=== PATIENT | female | born 1990 | race Caucasian/White ===

== ENCOUNTER 2021-03-09 08:35 | Emergency (ER) | payer OTHER, SELFPAY ==
[2021-03-09] VITALS (9 sets, daily range): BP systolic 103–135; BP diastolic 51–93; PULSE 80–121; RESP 16–18; TEMP 36.6; O2SAT 97–100; BMI 30.1
--- NOTE | 2021-03-09 09:12 | ED_ITS ---
HPI - Abdominal Pain General Chief Complaint: Abdominal Pain Stated Complaint: nausea/pain left side/sent by PCP Time Seen by Provider: 03/09/21 08:54 Source: patient Mode of arrival: Ambulatory Limitations: no limitations History of Present Illness HPI narrative: The patient presents with nausea. She developed abdominal pain about 3 weeks ago. She has been evaluated at the [facility] in [place]. Her initial evaluation revealed elevated transaminases. Her ferritin level is elevated. She apparently had repeat labs yesterday. She has nausea. She is not currently vomiting. She has no diarrhea. She has no jaundice. Right upper quadrant pain does not radiate. She has been on a clear liquid diet. She cannot clearly identify fatty food intolerance. Ultrasound showed fatty infiltrate, no obvious gallbladder disease. She is also being treated for Graves disease. She presents now because of the nausea she is experiencing this morning. She has no fever, chills or increasing abdominal discomfort other nausea. She is on control. Her LMP was 8 months ago. She is certain she is not . She has no urinary symptoms. She has no lower abdominal discomfort. Bowel movements have been normal. She has no suggestion of GI bleed. There is no clear family history of gallbladder/liver disease. Related Data Allergies Allergy/AdvReac Type Severity Reaction Status Date / Time No Known Drug Allergies Allergy Verified 03/09/21 08:43 Review of Systems Constitutional Constitutional: Denies body ache(s), Denies chills, Denies fatigue, Denies fever(s) and Denies headache(s) Eyes Eyes: Reports other (No yellowing of the eyes.) ENT Ears, Nose, Mouth, and Throat: Denies vertigo, Denies dizziness, Denies headache(s) and Denies sore throat Cardiovascular Cardiovascular: Denies chest pain, Denies rapid heart rate, Denies pedal edema, Denies edema and Denies dyspnea Respiratory Respiratory: Denies cough and Denies dyspnea Gastrointestinal Gastrointestinal: Reports as per HPI Genitourinary Genitourinary: Reports as per HPI Musculoskeletal Musculoskeletal: Denies back pain Integumentary/Breasts Skin/Breast: Denies jaundice Neurologic Neurologic: Denies vertigo, Denies dizziness and Denies headache(s) Endocrine Endocrine: Denies fatigue, Denies flushing and Denies polyuria Patient History Social History Smoking Status: Never smoker Smoking Status: Never smoker Substance Use Type: former substance user Exam Initial Vital Signs Initial Vital Signs: Vital Signs Pulse Rate 100 H 03/09/21 08:41 Respiratory Rate 18 03/09/21 08:41 Blood Pressure 135/90 03/09/21 08:41 Pulse Oximetry 100 03/09/21 08:41 Const General: cooperative, healthy appearing and comfortable [facility] Head: normal to inspection Face and sinus: normal facial exam Mouth: oral mucosae normal Throat: posterior oropharynx normal Eyes Sclera: sclerae normal Pupils: PERRL EOM: EOM intact bilaterally Neck Neck: normal visual inspection Chest Chest: normal inspection of the chest Resp Effort & Inspection: normal respiratory effort Auscultation: clear to auscultation bilaterally Cardio Rate: regular rate Rhythm: regular rhythm Heart Sounds: S1 normal, S2 normal and no murmurs GI Auscultation: normal bowel sounds Rectal Exam: No mass Other: RUQ tenderness without distention, guarding or rebound. Back/Spine/Pelvis Back: No CVA tenderness Skin General: no rashes or lesions noted and No jaundice Neuro General: patient alert, patient awake, patient oriented x3 and no focal motor deficits Extrem General: normal to inspection and No edema Psych Appearance: grossly normal Course Course Course Narrative: The evaluation is consistent with fatty liver. Her gallbladder appears to be normal. I am suggesting GI consultation and a HIDA scan for ongoing evaluation of the patient. Orders Ordered: ED Orders 03/09/21 09:04 Complete Blood Count AUTO DIFF Stat Comprehensive Metabolic Panel Stat Lipase Stat Partial Thromboplastin Time Stat Prothrombin Time INR Stat 03/09/21 09:08 EKG-12 Lead Stat 03/09/21 09:31 Urine Microscopic Stat 03/09/21 09:33 Test Urine Stat 03/09/21 11:11 US abdomen limited Stat Sodium Chloride (Normal Saline 0.9%) 1,000 mls @ 150 mls/hr IV CONT BHUMIKA Last Admin: 03/09/21 09:33 Dose: 150 mls/hr Documented by: KAUSHIK Discontinued Medications Ondansetron HCl (Ondansetron 4 Mg/2 Ml Inj) 4 mg IV NOW ONE Stop: 03/09/21 09:25 Last Admin: 03/09/21 09:33 Dose: 4 mg Documented by: KAUSHIK Vital Signs Vital signs: Vital Signs - 8 hr 03/09/21 08:41 03/09/21 08:48 03/09/21 09:03 Temperature 97.8 F Pulse Rate 100 H 121 H 100 H Respiratory Rate 18 18 18 Blood Pressure 135/90 135/90 Pulse Oximetry 100 100 97 03/09/21 09:30 03/09/21 10:00 03/09/21 10:30 Temperature Pulse Rate 103 H 93 H 90 Respiratory Rate 18 18 Blood Pressure 113/83 112/64 105/51 L Pulse Oximetry 98 98 98 03/09/21 11:00 03/09/21 11:30 Temperature Pulse Rate 85 86 Respiratory Rate 16 Blood Pressure 103/65 113/76 Pulse Oximetry 98 98 MDM - Abdominal Pain Lab Data Result diagrams: 03/09/21 09:04 03/09/21 09:04 Labs: Lab Results 03/09/21 03/09/21 03/09/21 Range/Units 09:04 09:04 09:04 WBC 6.0 (4.5-11.0) X10^3/uL RBC 4.86 (4.0-5.2) X10^6/uL Hgb 13.5 (12.0-16.0) g/dL Hct 40.7 (36-46) % MCV 83.7 (80-100) fL MCH 27.8 (26-34) PG MCHC 33.2 (30-36) % RDW 13.0 (11.6-14.8) % Plt Count 268 (150-400) X10^3/uL Neut % (Auto) 57.2 (50-75) % Lymph % (Auto) 30.4 (25-40) % Marshall % (Auto) 9.2 (3-14) % Eos % (Auto) 2.0 (2-4) % Baso % (Auto) 1.2 (0-2) % Neut # (Auto) 3400 (0054-1859) /uL Lymph # (Auto) 1800 (9031-6419) /uL Marshall # (Auto) 500 (0-900) /uL Eos # (Auto) 100 (0-450) /uL Baso # (Auto) 100 (0-100) /uL PT 12.1 (10.1-12.7) SECONDS INR 1.1 (0.9-1.3) APTT (26.4-36.2) SECONDS Sodium 138 (137-145) mmol/L Potassium 4.1 (3.4-5.1) mmol/L Chloride 102 (98-107) mmol/L Carbon Dioxide 25 (22-32) mmol/L BUN 6 L (7-17) mg/dL Creatinine 0.57 (0.52-1.04) mg/dL Estimated GFR > 60.0 (>60) mL/min BUN/Creatinine Ratio 10.5 (6-22) Glucose 99 (70-100) mg/dL Calcium 9.4 (8.4-10.2) mg/dL Total Bilirubin 0.5 (0.2-1.3) mg/dL AST 234 H (14-36) IU/L ALT 267 H (<35) IU/L Alkaline Phosphatase 78 (38-126) U/L Total Protein 8.3 H (6.3-8.2) g/dL Albumin 4.9 (3.5-5.0) g/dL Globulin 3.4 (1.7-4.1) g/dL Albumin/Globulin Ratio 1.4 (1.0-2.8) Lipase 115 (23-300) U/L Urine RBC (0-5/HPF) Urine WBC (0-5/HPF) Ur Squamous Epith Cells (0-5/HPF) Urine Bacteria (None) Ur Culture Indicated? Urine Test (Negative) 03/09/21 03/09/21 03/09/21 Range/Units 09:04 09:31 09:33 WBC (4.5-11.0) X10^3/uL RBC (4.0-5.2) X10^6/uL Hgb (12.0-16.0) g/dL Hct (36-46) % MCV (80-100) fL MCH (26-34) PG MCHC (30-36) % RDW (11.6-14.8) % Plt Count (150-400) X10^3/uL Neut % (Auto) (50-75) % Lymph % (Auto) (25-40) % Marshall % (Auto) (3-14) % Eos % (Auto) (2-4) % Baso % (Auto) (0-2) % Neut # (Auto) (6800-9344) /uL Lymph # (Auto) (7410-4027) /uL Marshall # (Auto) (0-900) /uL Eos # (Auto) (0-450) /uL Baso # (Auto) (0-100) /uL PT (10.1-12.7) SECONDS INR (0.9-1.3) APTT 37 H (26.4-36.2) SECONDS Sodium (137-145) mmol/L Potassium (3.4-5.1) mmol/L Chloride (98-107) mmol/L Carbon Dioxide (22-32) mmol/L BUN (7-17) mg/dL Creatinine (0.52-1.04) mg/dL Estimated GFR (>60) mL/min BUN/Creatinine Ratio (6-22) Glucose (70-100) mg/dL Calcium (8.4-10.2) mg/dL Total Bilirubin (0.2-1.3) mg/dL AST (14-36) IU/L ALT (<35) IU/L Alkaline Phosphatase (38-126) U/L Total Protein (6.3-8.2) g/dL Albumin (3.5-5.0) g/dL Globulin (1.7-4.1) g/dL Albumin/Globulin Ratio (1.0-2.8) Lipase (23-300) U/L Urine RBC None seen (0-5/HPF) Urine WBC None seen (0-5/HPF) Ur Squamous Epith Cells 5-10 /hpf H (0-5/HPF) Urine Bacteria None seen (None) Ur Culture Indicated? Cult not indicated Urine Test Negative (Negative) Point of care testing: Urine Dip Bedside Urine Glucose Negative Bedside Urine Bilirubin - Negative Bedside Urine Ketone - Negative Urine Specific [place] 1.010 Bedside Urine Occult Blood - Negative Bedside Urine pH 6.5 Bedside Urine Protein - Negative Bedside Urine Urobilinogen 0.2 Bedside Urine Nitrite - Negative Bedside Urine Leukocytes + 70 Esterase Imaging Data US - abdomen: Radiologist's Impression: Launch?[address] [address] Ultrasound Report Signed Patient: Lynn Trujillo MR#: [id number] : 1990 Acct:[id number] Age/Sex: 30 / F Date of Service: 03/09/21 Loc: ED Accession Number: [id number] ?? Procedure: US abdomen limited Ordering Provider: Jose Miguel Garcia MD PROCEDURE: US ABDOMEN LIMITED ? INDICATIONS:? ELEVATED LIVER FUNCTION TESTS ? TECHNIQUE:? Real-time focused scanning was performed of the abdomen, with image documentation.? ? COMPARISON:? None. ? FINDINGS:? The liver demonstrates enlarged size. The liver demonstrates generalized prominently increased echogenicity. This decreases ultrasound sensitivity for detection of hepatic masses.? ? No findings of gallstones or sludge are seen.? The gallbladder wall is not thickened, measuring 3 mm or less.? No specific pericholecystic fluid is seen.? The sonographic Garland sign is negative. ? There is no biliary dilatation, the common bile duct measures 2 mm.? ? No significant pancreatic abnormality is seen on these images.? IMPRESSION:? Enlarged, fatty liver. ? The gallbladder demonstrates a normal sonographic appearance. No biliary dilatation is seen. ? Note: Concordant preliminary findings given by the tester equipment upon the completion of the examination to Dr. Garcia at 11:48 a.m. on March 09, 2021. ? ? ? Dictated by: Ángel Yan M.D. on 03/09/2021 at 11:14 ? ? Approved by: Ángel Yan M.D. on 03/09/2021 at 11:15?? Discharge Plan Departure Patient Disposition: Home Clinical Impression: Fatty liver Instructions: DI for Nonalcoholic Fatty Liver Disease Activity Restrictions/Additional Instructions: I would recommend a low-fat diet, drink plenty of fluids. Your ultrasound reveals fatty liver, but also reveals your gallbladder is normal. I would suggest you talk your PCM about a HIDA scan, another look at your liver. I would also suggest a consult to Gastroenterology Return here as needed.
[2021-03-09 09:17] LABS: Add Manual Diff / Slide Review NO; Basophils Absolute Auto 100 /uL (0-100); Basophils Percent Auto 1.2 % (0-2); Eosinophils Absolute Auto 100 /uL (0-450); Hematocrit 40.7 % (36-46); Hemoglobin 13.5 g/dL (12.0-16.0); Lymphocytes Absolute Auto 1800 /uL (1100-4500); Lymphocytes Percent Auto 30.4 % (25-40); Mean Corpuscular HGB Conc 33.2 % (30-36); Mean Corpuscular Hemoglobin 27.8 PG (26-34); Mean Corpuscular Volume 83.7 fL (80-100); Monocytes Absolute Auto 500 /uL (0-900); Monocytes Percent Auto 9.2 % (3-14); Neutrophils Absolute Auto 3400 /uL (1500-7000); Neutrophils Percent Auto 57.2 % (50-75); Platelet Count 268 X10^3/uL (150-400); Red Blood Cell Count 4.86 X10^6/uL (4.0-5.2)
[2021-03-09 09:19] LABS: INR 1.1 (0.9-1.3); Prothrombin Time 12.1 SECONDS (10.1-12.7)
[2021-03-09 09:22] LABS: PTT Partial Thromboplastin Tim 37 SECONDS (26.4-36.2)
[2021-03-09 09:24] LABS: Alanine Aminotransferase 267 IU/L (<35); Albumin 4.9 g/dL (3.5-5.0); Albumin Globulin Ratio 1.4 (1.0-2.8); Alkaline Phosphatase 78 U/L (38-126); Aspartate Aminotransferase 234 IU/L (14-36); BUN Creatinine Ratio 10.5 (6-22); Bilirubin Total 0.5 mg/dL (0.2-1.3); Blood Urea Nitrogen 6 mg/dL (7-17); Calcium 9.4 mg/dL (8.4-10.2); Carbon Dioxide 25 mmol/L (22-32); Chloride 102 mmol/L (98-107); Estimated Glomerular Filt Rate > 60.0 mL/min (>60); Globulin 3.4 g/dL (1.7-4.1); Glucose 99 mg/dL (70-100); HEMOLYSIS < 15 (0-50); Lipase 115 U/L (23-300); Potassium 4.1 mmol/L (3.4-5.1); Sodium 138 mmol/L (137-145); Total Protein 8.3 g/dL (6.3-8.2)
[2021-03-09] MEDS: SODIUM CHLORIDE 0.9% 1,000 ML 150 ML IV (09:33)
[2021-03-09] MEDS: ONDANSETRON 4 MG/2 ML INJ IV (09:33)
[2021-03-09 09:38] LABS: Bacteria Urine None Seen; Culture Indicated Urine Cult Not Indicated; RBC Urine None Seen (0-5/HPF); Squamous Epithelial Cell Urine 5-10 /HPF (0-5/HPF); WBC Urine None Seen (0-5/HPF)
[2021-03-09 09:39] LABS: Pregnancy Test Urine Negative (Negative)
--- NOTE | 2021-03-09 11:11 | DI.US.S_ITS ---
PROCEDURE: US ABDOMEN LIMITED INDICATIONS: ELEVATED LIVER FUNCTION TESTS TECHNIQUE: Real-time focused scanning was performed of the abdomen, with image documentation. COMPARISON: None. FINDINGS: The liver demonstrates enlarged size. The liver demonstrates generalized prominently increased echogenicity. This decreases ultrasound sensitivity for detection of hepatic masses. No findings of gallstones or sludge are seen. The gallbladder wall is not thickened, measuring 3 mm or less. No specific pericholecystic fluid is seen. The sonographic Garland sign is negative. There is no biliary dilatation, the common bile duct measures 2 mm. No significant pancreatic abnormality is seen on these images. IMPRESSION: Enlarged, fatty liver. The gallbladder demonstrates a normal sonographic appearance. No biliary dilatation is seen. Note: Concordant preliminary findings given by the occupational therapist's assistant upon the completion of the examination to Dr. Garcia at 11:48 a.m. on March 09, 2021. Dictated by: Ángel Yan M.D. on 03/09/2021 at 11:14 Approved by: Ángel Yan M.D. on 03/09/2021 at 11:15
== END 2021-03-09 12:31 | disposition home or self-care (01) ==
PROVIDERS: Emergency Provider Emergency Medicine
DX: K76.0 Fatty (change of) liver, not elsewhere classified (principal); R11.0 Nausea; R10.11 Right upper quadrant pain
CPT/HCPCS: 36415; 76705; 80053; 81003; 81015; 81025; 83690; 85025; 85610; 85730; 93005; 96361; 96374; 99284; J2405